=== PATIENT | male | born 1965 | race Caucasian/White ===

== ENCOUNTER 2016-04-01 05:32 | Inpatient (IN) | payer OTHER ==
[2016-03-17 12:47] VITALS: BMI 38.0
--- NOTE | 2016-03-17 13:13 | PAT Medication Instructions ---
Service Date Mar 17, 2016. Current Home Medication List Acetaminophen (Tylenol), 1,000 MG PO PRN Ascorbic Acid (Vitamin C), 500 MG PO QAM Aspirin (Aspirin Chewable), 81 MG PO QAM Atorvastatin (Lipitor), 40 MG PO QPM Carvedilol (Coreg), 3.125 MG PO BID Hydrochlorothiazide (Hctz), 25 MG PO QAM Loratadine (Claritin), 10 MG PO QAM Losartan Potassium (Cozaar), 25 MG PO QPM Tramadol (Ultram), 50 MG PO PRN Medication Instructions For Your Scheduled Surgery - Hold the following medications the morning of surgery: Hydrochlorothiazide (Hctz), 25 MG PO QAM Loratadine (Claritin), 10 MG PO QAM Ascorbic Acid (Vitamin C), 500 MG PO QAM - Take the following medications the morning of surgery with a sip of water OTHERWISE NOTHING TO EAT OR DRINK AFTER MIDNIGHT: Carvedilol (Coreg), 3.125 MG PO BID Aspirin (Aspirin Chewable), 81 MG PO QAM Acetaminophen (Tylenol), 1,000 MG PO PRN (may take up to 4 hours prior to surgery if needed) Tramadol (Ultram), 50 MG PO PRN (may take up to 4 hours prior to surgery if needed) - Take the following medications as scheduled the night before surgery: Atorvastatin (Lipitor), 40 MG PO QPM Carvedilol (Coreg), 3.125 MG PO BID Acetaminophen (Tylenol), 1,000 MG PO PRN Tramadol (Ultram), 50 MG PO PRN - Do Not take the following medications the night before surgery: Losartan Potassium (Cozaar), 25 MG PO QPM If you have any questions please call us at [phone] or [phone] or [phone]
[2016-03-17 13:44] LABS: BASO % 0.2 %; BASO ABS # 0.02 K/uL (0-0.2); COMPLETE YES; EOS % 0.8 %; HEMATOCRIT 42.5 % (42-52); IG% 0.2 %; LYMPH % 29.4 %; LYMPH ABS # 2.47 K/uL (1.2-3.4); MEAN CELL VOLUME 85.9 fL (80-100); MEAN CORPUSCULAR HEMOGLOBIN 30.3 pg (25-34); MEAN CORPUSCULAR HGB CONC 35.3 g/dl (32-36); MEAN PLATELET VOLUME 9.6 fL (7.4-10.4); MONO % 12.5 %; NEUT % 56.9 %; PLATELET COUNT 230 K/uL (130-400); RED BLOOD COUNT 4.95 M/uL (4.7-6.1)
[2016-03-17 13:44] LABS: URINE APPEARANCE CLEAR (CLEAR); URINE BILIRUBIN NEG (NEG); URINE COLOR YELLOW; URINE NITRITE NEG (NEG); URINE SPECIFIC GRAVITY 1.017 (1.000-1.030); UROBILINOGEN NEG (NEG)
[2016-03-17 13:57] LABS: MANUAL MICROSCOPIC REQUIRED? NO; REVIEW REQ? NO
[2016-03-17 14:01] LABS: PROTHROMBIN TIME (PATIENT) 10.7 SECONDS (9.0-12.0)
--- NOTE | 2016-03-17 14:02 | DIAGNOSTIC IMAGING REPORT ---
CHEST 2 VIEWS ROUTINE CLINICAL HISTORY: PAT preoperative evaluation COMPARISON STUDY: No previous studies for comparison. FINDINGS: The bones soft tissues and hemidiaphragms are normal. The cardiomediastinal silhouette is normal. The lungs are clear. The pulmonary vasculature is normal. IMPRESSION: Negative chest. Electronically signed by: Tapan Radford M.D. 03/17/2016 2:01 PM Dictated Date/Time: 03/17/2016 2:00 PM
[2016-03-17 14:13] LABS: BUN/CREATININE RATIO 12.1 (10-20); CALCIUM 9.1 mg/dl (8.5-10.1); CREATININE 1.2 mg/dl (0.60-1.40); POTASSIUM 3.3 mmol/L (3.5-5.1)
--- NOTE | 2016-03-31 11:23 | HISTORY & PHYSICAL EXAMINATION ---
DATE OF ADMISSION: 04/01/2016 CHIEF COMPLAINT: He presents with back pain, left lower extremity difficulty, paresthesias in the 3-4 nerve root distribution. HISTORY OF PRESENT ILLNESS: Mr. Anderson is a delightful gentleman. He a lumbar spinal stenosis and fusion surgery done a few years ago in [place]. He had a PLIF procedure at L5-S1. He had symptomatic left lower extremity difficulty for significant time period now. Not associated with any fever, sweats, chills or bowel or bladder concerns. He has documented stenosis of the spine at L3-4. Some residual at L4-5 lumbar area. The L5-S1 level in our opinion is benign. PAST MEDICAL HISTORY: Positive for heart disease, positive for hyperlipidemia and hypertension. SURGICAL MEDICAL HISTORY: He had an L4 and 5 fusion in 2013. ALLERGIES: No allergies to medications. CURRENT MEDICATIONS: List includes Lipitor, Coreg, Cozaar, hydrochlorothiazide, baby aspirin, Claritin and tramadol. FAMILY MEDICAL HISTORY: Positive for heart disease, stroke. Negative for diabetes, blood clots, DVTs and cancer. SOCIAL HISTORY: He is . Rarely drinks alcohol. No tobacco use. Active lifestyle. REVIEW OF SYSTEMS: CARDIOVASCULAR: Positive for heart problems. NEUROLOGICAL: Positive for numbness and tingling. PHYSICAL EXAMINATION: CONSTITUTION: He presents to the office with no acute distress. He is 50 years of age, he is 5 foot 5, 220 pounds. CARDIOVASCULAR: Brisk capillary refill in distal extremities. RESPIRATORY: Equal and bilateral breath sounds. INTEGUMENTARY: No breakages of the skin. Integumentary is intact. GASTROINTESTINAL: Abdomen is soft, nontender. No organomegaly with percussion or palpation. RESPIRATORY: Equal and bilateral breath sounds with auscultation. No rales, rhonchi or wheezing. MUSCULOSKELETAL EXAMINATION: No obvious varicosities of the lower extremities. He does have 5/5 motor strength in his right and left lower extremities. He is neurologically intact. No upper motor neuron issues or lower motor neuron pathology. No pain with straight leg raises bilaterally. DIAGNOSTICS: Images from an outside facility were looked at and evaluated. He has some stenosis at the L3-4 level. Nothing at L2-3. Nothing at L1 and L2. He does have a prior fusion at L4-5. There is still some foraminal stenosis at L4-5. ASSESSMENT DIAGNOSES: Lumbar spinal stenosis at L3-4. Some residual stenosis at 4-5 as well. No gross instability, no spondylolisthesis, no scoliosis. PLAN: At this time, we are going to provided him surgery, laminectomy, decompression and instrumentation of the lumbar spine. Will provide him with a decompression at L3-4, as well as decompression L5-1. We may continue instrumentation from the L4-5 segments up to L3-4 as well. We describe the procedure with him. All the risks and benefits involved. He does fully understand. We did provide him with a back brace postop. Also provided him with pain medications postop as well. We will follow him up in the office 10-14 days postop. Reevaluate and suture removal. Anticipate him being at [facility] for 1, possibly 2 days, before discharge.
[~2016-04-01] VITALS: Ht 167.6 cm; Wt 106.1 kg
[2016-04-01] VITALS (9 sets, daily range): BP systolic 117–163; BP diastolic 71–97; PULSE 77–111; TEMP 36.3–36.8; O2SAT 92–99; Ht 167.6 cm; Wt 106.1 kg
[~2016-04-01 05:32] MED LIST: ACET-1256 PO; ASCO1CAP3 PO; ASPCH81X PO; ATOR-24 PO; CARV3.122 PO; CLR10 PO; HYDR25TA4 PO; LOSA1TAB PO; TRAM-10 PO
[2016-04-01] MEDS ORDERED: CEFAZOLIN 2000 MG/60 ML D5W 60 ML IV SCH (06:00)
[2016-04-01] MEDS ORDERED: LACTATED RINGER'S 1000ML IV SCH (06:00)
[2016-04-01] MEDS ORDERED: NSS 1000ML IV SCH (06:00)
[2016-04-01] MEDS ORDERED: LIDOCAINE HCL 2% 2 ML VIAL (20MG/ML) ONE (06:47)
[2016-04-01] MEDS ORDERED: DEXAMETHASONE SOD INJ 4 MG/ML VIAL ONE (06:47)
[2016-04-01] MEDS ORDERED: GLYCOPYRROLATE INJ 0.2 MG/ML VIAL ONE (06:47)
[2016-04-01] MEDS ORDERED: NEOSTIGMINE METHYLSULFATE 5 MG/5 ML SYR ONE (06:47)
[2016-04-01] MEDS ORDERED: ROCURONIUM BROMIDE 10 MG/ML 5 ML VIAL ONE (06:47)
[2016-04-01] MEDS ORDERED: PROPOFOL IV EMULSION 10 MG/ML 20 ML VIAL IV ONE (06:47)
[2016-04-01] MEDS ORDERED: ONDANSETRON INJ 2 MG/ML 2 ML VIAL ONE (06:47)
[2016-04-01] MEDS ORDERED: MIDAZOLAM HCL 1 MG/ML 2ML VIAL ONE (06:48)
[2016-04-01] MEDS ORDERED: HYDROmorphone INJ 2 MG/ML SYR/VIAL ONE (06:48)
[2016-04-01] MEDS ORDERED: FENTANYL CITRATE INJ 50 MCG/1 ML 2 ML VIAL ONE ×2 (06:48)
[2016-04-01] MEDS ORDERED: GELATIN SPONGE SZ 100 ONE (06:55)
[2016-04-01] MEDS ORDERED: THROMBIN FOR SOLN 20000 UNIT KIT ONE ×2 (06:55→07:01)
[2016-04-01] MEDS ORDERED: BACITRACIN 50000 UNIT VIAL ONE (06:56)
[2016-04-01] MEDS ORDERED: VANCOMYCIN HCL 1000MG/20ML VIAL ONE (06:56)
[2016-04-01] MEDS ORDERED: BUPIVACAINE/EPINEPHRINE 0.5% MPF 1:200,000 30 ML VIAL ONE (06:56)
[2016-04-01] MEDS ORDERED: EpHEDrine SULFATE INJ 50 MG/ML AMP IV PRN (07:00)
[2016-04-01] MEDS ORDERED: FENTANYL CITRATE INJ 50 MCG/1 ML 2 ML VIAL IV PRN (07:00)
[2016-04-01] MEDS ORDERED: ONDANSETRON INJ 2 MG/ML 2 ML VIAL IV PRN ×2 (07:00→11:00)
[2016-04-01] MEDS ORDERED: ATROPINE SULFATE 0.1 MG/ML 5ML SYR IV PRN (07:00)
[2016-04-01] MEDS ORDERED: HYDROmorphone INJ 1 MG/ML SYR IV PRN (07:00)
--- NOTE | 2016-04-01 07:19 | History & Physical Bridge Note ---
H&P Re-Evaluation Bridge Note: I have examined the patient, reviewed the History & Physical and in the interval since the performance of the History & Physical I have noted the following changes of clinical significance: No changes noted
[2016-04-01] MEDS ORDERED: EpHEDrine SULFATE 50MG/5ML SYR ONE (08:44)
--- NOTE | 2016-04-01 10:11 | DIAGNOSTIC IMAGING REPORT ---
INTRAOPERATIVE RADIOGRAPH CLINICAL HISTORY: L3-L5 laminectomy. Fluoroscopy time: 4 seconds. FINDINGS: A single spot fluoroscopic view of the lumbar spine is presented. There is evidence of discectomy at L4-L5 with laminectomy and posterior fusion from L3 to L5. Interpedicular screws are present at all levels. The hardware appears intact. IMPRESSION: Intraoperative image from L3 -L5 spinal fusion as above. Electronically signed by: Lobito Pyle M.D. 04/01/2016 10:10 AM Dictated Date/Time: 04/01/2016 10:09 AM
[2016-04-01] MEDS ORDERED: DURASEAL DURAL SEALANT 5ML TOP ONE (10:19)
[2016-04-01] MEDS ORDERED: SODIUM CHLORIDE 0.9% 1000ML 1,000 ML IV SCH (10:49)
--- NOTE | 2016-04-01 10:51 | [facility] Post Operative Brief Note ---
Immediate Operative Summary Operative Date Apr 01, 2016. Pre-Operative Diagnosis Lumbar spinal stenosis L3-4, some residual stenosis at L4-5 Post-Operative Diagnosis Same as pre-operative diagnosis Procedure(s) Performed L3-L4, L4-L5 Laminectomy; L4-L5 Removal Implants; L3-L4, L4-L5 Insertion of Implants and Fusion, Prophylactic Use of Duraseal Surgeon Dr. Chapin Soto Language Path Surgeon(s) Nam Lind PA-C Estimated Blood Loss 300ml Findings severe stenosis L3-5 Specimens A: Explanted hardware lumbar spine L4-5 Complication(s) None Disposition Recovery Room / PACU
[2016-04-01] MEDS ORDERED: HYDROmorphone HCL 0.5MG/ML 50 ML CASSETTE ONE (10:59)
[2016-04-01] MEDS ORDERED: LORAZEPAM INJ 1 MG in SYRINGE 0 ML IV PRN (11:00)
[2016-04-01] MEDS ORDERED: ACETAMINOPHEN 500 MG TAB PO SCH (11:00)
[2016-04-01] MEDS ORDERED: ACETAMINOPHEN 325 MG TAB PO PRN (11:00)
[2016-04-01] MEDS ORDERED: MAGNESIUM HYDROXIDE SUSP 30 ML UDC PO PRN (11:00)
[2016-04-01] MEDS ORDERED: PROMETHAZINE HCL INJ 12.5 MG in SODIUM CHLORIDE 0.9% 50ML 50 ML IV PRN (11:00)
[2016-04-01] MEDS ORDERED: METOCLOPRAMIDE HCL INJ 5 MG/ML 2 ML VIAL IV PRN (11:00)
[2016-04-01] MEDS ORDERED: NALOXONE HCL 0.4 MG/1 ML VIAL/CARP IV PRN (11:00)
[2016-04-01] MEDS ORDERED: LORAZEPAM 1 MG TAB PO PRN (11:00)
[2016-04-01] MEDS ORDERED: PROMETHAZINE HCL INJ 12.5 MG in SODIUM CHLORIDE 0.9% 50ML 50 ML IV ONE (11:45)
--- NOTE | 2016-04-01 12:08 | OPERATIVE REPORT ---
DATE OF OPERATION: 04/01/2016 PREOPERATIVE DIAGNOSIS: Spinal instability 3-4 lumbar spine, severe stenosis lumbar spine L3-4, L4-5. Retained implants L4-5. POSTOPERATIVE DIAGNOSIS: Same. PROCEDURE: 1. Laminectomy L3, L4, L5. Four level laminectomy, foraminotomy, and partial facetectomies. 2. Removal of prior implants at L4 and 5. 3. Pedicle screw insertion, single segment fusion L3-4 with new pedicle screws placed in L3, retained pedicle screws reused at L4 and L5. SURGEON: Dr. Soto. RELIEF OPERATOR: Nam Lind PA-C. COMPLICATIONS: Zero. BLOOD LOSS: 300. The patient was taken to the operating room and a general intubated anesthetic provided to the patient, placed prone, prepped, draped sterile. He was first shaved, he was first scrubbed. Antibiotics given. Wang catheter administered as well. We made a skin incision, essentially his old skin incision from 3 to the sacrum, dissecting the soft tissue. We came right out over the pedicle screws at 4-5 bilaterally, putting a deep self-retaining retractor. I also exposed up to the L3 vertebral level. We then did a formal decompression of laminectomy at 3, 4, and 5 of the lumbar spine. It was essentially a virgin decompression, meaning it did not appear to me that it had been decompressed in the past. We carefully and meticulously got pressure of the dura and the associated nerve roots, L3-L4, L4-L5, and even the S1 nerve roots were decompressed. I was pleased with the decompression aspect. I felt there was a little instability as I had taken out a lot of the facet joints at 3 and 4, so we did instrument the spine. We first took out the francesco between 4 and 5. Anticipating taking out the screws as well. I have made the decision at the surgical site that the screws were satisfactory, that the heads where appropriate, that we could maintain the screws and save him probably 30-45 minutes of operative time. We then carefully get pedicle screws safely in at L3. We put a longitudinal francesco from 3, 4, and 5. Used the old caps and the new caps, kind of a revision technique, and fixated his spine. Then we bone grafted out over the transverse processes to initiate the fusion. We irrigated thoroughly, probably used about 1000 mL of fluid before bone grafting. Put some DuraSeal over the dura, Gelfoam over the dura and vancomycin powder sprinkled. Hemovac drain provided. Closed fascia to fascia with 1 Vicryl suture, 2-0 in the subcuticular layer, 3-0 nylon on the skin, sterile dressing applied. The patient returned to PACU stable. No apparent complications. I attest to the content of the Intraoperative Record and any orders documented therein. Any exceptio ns are noted below.
[2016-04-01] MEDS ORDERED: LABETALOL HCL IV 5 MG/ML 20ML ONE (12:12)
--- NOTE | 2016-04-01 12:51 | Anesthesiology Progress Note ---
Anesthesia Post Op Note Date & Time Apr 01, 2016 at 12:51 Vital Signs Pain Intensity: 0 Vital Signs Past 12 Hours Date Time Temp Pulse Resp B/P Pulse Ox O2 Delivery O2 Flow Rate FiO2 04/01/16 12:03 158/88 04/01/16 12:01 158/97 04/01/16 12:00 97 12 95 04/01/16 12:00 96 12 04/01/16 11:58 194/95 04/01/16 11:55 96 19 97 04/01/16 11:55 93 19 04/01/16 11:53 176/87 04/01/16 11:50 91 18 04/01/16 11:50 91 18 96 04/01/16 11:49 82 16 04/01/16 11:49 82 16 98 04/01/16 11:48 176/84 04/01/16 11:44 92 17 04/01/16 11:44 93 17 173/77 97 04/01/16 11:42 188/120 04/01/16 11:39 77 17 04/01/16 11:39 75 17 98 04/01/16 11:38 174/101 04/01/16 11:35 152/119 04/01/16 11:34 102 19 04/01/16 11:34 102 19 100 04/01/16 11:33 166/98 04/01/16 11:29 83 17 97 04/01/16 11:29 82 17 04/01/16 11:28 158/89 04/01/16 11:24 95 16 04/01/16 11:24 95 16 97 04/01/16 11:23 187/96 04/01/16 11:19 76 16 04/01/16 11:19 75 16 98 04/01/16 11:18 156/84 04/01/16 11:14 80 9 98 04/01/16 11:14 80 9 04/01/16 11:13 75 23 04/01/16 11:13 73 23 165/89 95 04/01/16 11:13 75 23 04/01/17 11:13 73 23 165/89 95 04/01/16 11:08 93 10 151/81 98 04/01/16 11:08 93 10 04/01/16 11:08 93 10 151/81 98 04/01/16 11:08 93 10 04/01/16 11:06 36.3 82 19 150/85 98 Mask 10 04/01/16 11:03 80 19 04/01/16 11:03 80 19 04/01/16 11:03 80 19 176/108 98 04/01/16 11:03 80 19 176/108 98 04/01/16 10:58 85 15 04/01/16 10:58 85 15 175/105 98 04/01/16 10:58 85 15 175/105 98 04/01/16 10:58 85 15 04/01/16 05:55 36.4 86 18 163/97 96 Room Air Notes Mental Status: alert / awake / arousable, participated in evaluation Pt Amnestic to Procedure: Yes Nausea / Vomiting: adequately controlled Pain: adequately controlled Airway Patency, RR, SpO2: stable & adequate BP & HR: stable & adequate Hydration State: stable & adequate Anesthetic Complications: no major complications apparent
[2016-04-01] MEDS: HYDROmorphone HCL 0.5MG/ML 50 ML CASSETTE IV PRN ×3 (13:13→23:16)
[2016-04-01] MEDS: SODIUM CHLORIDE 0.9% 1000ML 1,000 ML IV SCH (14:41)
[2016-04-01] MEDS: DEXAMETHASONE INJ 10 MG in SYRINGE 0 ML IV SCH (18:03)
[2016-04-01] MEDS: CEFAZOLIN IV 2,000 MG in DEXTROSE 5% 50ML 50 ML IV SCH (18:03)
[2016-04-01] MEDS: KETOROLAC TROMETHAMINE 30 MG/ML VIAL IV SCH (18:04)
[2016-04-01] MEDS: ATORVASTATIN 40 MG TAB PO SCH (21:52)
[2016-04-01] MEDS: CARVEDILOL 3.125 MG TAB PO SCH (21:53)
[2016-04-01] MEDS: LOSARTAN POTASSIUM 25 MG TAB PO SCH (21:54)
[2016-04-02] VITALS (8 sets, daily range): BP systolic 116–156; BP diastolic 68–80; PULSE 84–102; TEMP 36.5–36.8; O2SAT 94–97
[2016-04-02] MEDS: SODIUM CHLORIDE 0.9% 1000ML 1,000 ML IV SCH (00:01)
[2016-04-02] MEDS: CEFAZOLIN IV 2,000 MG in DEXTROSE 5% 50ML 50 ML IV SCH ×2 (00:02→07:25)
[2016-04-02] MEDS: DEXAMETHASONE INJ 10 MG in SYRINGE 0 ML IV SCH ×4 (00:04→23:49)
[2016-04-02] MEDS: KETOROLAC TROMETHAMINE 30 MG/ML VIAL IV SCH ×4 (00:05→18:15)
[2016-04-02] MEDS ORDERED: DC PCA SCH ×2 (06:00→08:00)
[2016-04-02] MEDS ORDERED: BISACODYL 5 MG TABEC PO PRN (06:00)
[2016-04-02] MEDS ORDERED: BISACODYL 10 MG SUPP PR PRN (06:00)
--- NOTE | 2016-04-02 07:29 | Discharge Instructions ---
Discharge Instructions Admission Reason for Admission: Lumbar Spinal Stenosis Discharge Discharge Diagnosis / Problem: spinal fusion Discharge Goals Goal(s): Improve function Activity Recommendations Activity Limitations: as noted below Lifting Limitations: no more than 5 pounds Exercise/Sports Limitations: until after follow-up appointment May Resume Sexual Activity: after follow-up appointment Shower/Bathe: keep incision dry Driving or Machine Use: . Instructions / Follow-Up Instructions / Follow-Up MEDICATIONS: Please take your prescriptions as instructed at your pre-op appointment. SPECIAL CARE: The following information is intended to answer some of the common questions and concerns regarding your surgery. Each patient is an individual and receives individual counselling throughout the course of treatment, from diagnosis to surgery all the way through recovery. What follows is not an exhaustive list, but should be a useful guide to some of the common questions and concerns patients have regarding their surgeries. These are not provided to keep you from calling us; rather, they give you something accurate and concrete to reference as you recover from your procedure. If you need us, we are available to you. As always, if you are not sure about something, call us at [phone]. MEDICAL EMERGENCIES: For these conditions, call 911 or go to your local hospital-based Emergency Department - not [facility] or equivalent. * Paralysis * Severe chest pain or difficulty breathing * Swelling or redness of either leg Spine procedures can be rather complex and though complications are rare, they do occur. In such cases, effective advice regarding emergency situations cannot always be addressed over the telephone. You may be referred to the emergency department for more effective management of your problem. Activity Limitations: It is important to give your body time to heal, so please limit your activities : * In general, don't do anything that moves your spine too much. You should avoid contact sports, twisting or heavy lifting while you recover. * 5-10 pounds is all you should attempt to lift. * You should not plan on driving for approximately 3 weeks and you should avoid traveling more than 30-45 minutes at a time. Longer trips should be broken down with walking breaks spaced appropriately. * Physical therapy is not usually required. * Walking and good posture practices will help you recover and regain your function. * Avoid straining or sudden changes in position. * In general, the goal is to take it easy and recover. Don't cause any new problems. Just relax. Showers: * Do not take a bath, use a Jacuzzi or hot tub or otherwise submerge your incision. * It is usually safe to take a shower 4-5 days after your surgery. * Your incision does not require any special creams or ointments. * Simply clean it with soap and water, dry and re-dress with a clean bandage afterwards. Incision: * Keep incision clean, dry and protected until your first follow-up appointment. * Some amount of drainage and redness is normal. Any drainage should be fairly clear and not have a foul odor. * If you feel anything is wrong or you have excessive drainage, please call us. * Your stitches and tricia will be removed 10-14 days after your surgery. At the time of your first post-op visit. * Neck surgeries are typically closed with a suture underneath the skin. The steri-strips over the incision should be maintained until we see you in the office. Bracing: * You may be provided with a back or neck brace to encourage good posture and prevent injury. It will remind you not to do too much as you heal and will alert others to the fact that you have had a surgery. * Back braces may be removed for showers and when you are resting at home. They must be worn when you are walking around for any period of time or for travel. * For neck surgery, you will likely be provided with two cervical collars. The soft collar ([place] or foam rubber) is worn most commonly throughout the day and while sleeping. The plastic collar (provided at the hospital) is for showering/bathing. * Except while eating, collars should remain in place. More specifically, bracing is provided for a purpose and should be worn. * Please obtain your brace or collars prior to your operation and bring them to the hospital with you on the day of surgery. * You should also bring your collars to your post-op appointment with Dr. Soto. You should always take good care of your body and practice healthy habits, especially following surgery. You should: * Follow your doctor's treatment plan * Sit and stand properly with good posture (ears over shoulders, shoulders over hips) Don't slouch * Learn to lift correctly * Exercise regularly (low-impact aerobic exercise is especially good, but check with your doctor first) * Generally, be up and walking for 5-10 minutes at a time at least 3-4 times per day from the day you get home * Increasing walking to tolerance until you can walk for 20-30 minutes at a time * Attain and maintain a healthy body weight * Eat healthy foods ( a well-balanced, low-fat diet rich in fruits and vegetables) and get enough calcium * Avoid excessive use of alcohol When to call our office - If you notice any of the following: * Increased pain not relieve by pain medicine * Fevers greater then 100 degrees F, chills or flu symptoms * Increased redness around incision * Drainage from the incision that is not clear * Any foul smelling drainage * Swelling or fluid collection beneath the skin Miscellaneous: * In the hospital, you may be given a walker or cane for support while walking. These are temporary needs and are intended to prevent injuries due to falls. You may discontinue them when you feel strong and steady enough on your feet. * Sleep in a comfortable position. We find that many patients find a lounge chair or recliner with several pillows to be beneficial in the early post-operative period. * The support stockings should be used for 7-10 days and may be discontinued when you are back to walking more and conducting usual household activities. No problem is insignificant. We are here to help you and get you well. Contact us at [phone]. Definitions: Foraminotomy: If part of the disc or a bone spur (osteophyte) is pressing on a nerve as it leaves the vertebra (through an exit called the foramen), a foraminotomy may be done. Otomy means "to make an opening." A foraminotomy is making the opening of the foramen larger, so the nerve can exit without being compressed. Laminotomy: Similar to the foraminotomy, a laminotomy makes a larger opening, this time in your bony plate protecting your spinal canal and spinal cord (the lamina). The lamina may be pressing on your nerve, so the surgeon may make more room for the nerves using a laminotomy. Laminectomy: Sometimes, a laminotomy is not sufficient. The surgeon may need to remove all or part of the lamina. This procedure is called a laminectomy. This can often be done at many levels without any harmful effects. Current Hospital Diet Patient's current hospital diet: Regular Diet Discharge Diet Recommended Diet: Regular Diet Procedures Procedures Performed: L3-L4, L4-L5 Laminectomy; L4-L5 Removal Implants; L3-L4, L4-L5 Insertion of Implants and Fusion, Prophylactic Use of Duraseal Pending Studies Studies pending at discharge: no Medical Emergencies . Who to Call and When: Medical Emergencies: If at any time you feel your situation is an emergency, please call 911 immediately. . Non-Emergent Contact Non-Emergency issues call your: Surgeon Call Non-Emergent contact if: your pain is worsening, you have any medication questions . "Provider Documentation" section prepared by Chapin Soto. VTE Core Measure Inpt VTE Proph given/why not?: Treatment not indicated
--- NOTE | 2016-04-02 07:34 | PROGRESS NOTE ---
DATE: 04/02/2016 DATE: 04/02/2016. SUBJECTIVE: Minimal complaints of pain. Alert, oriented. No riveting lower extremity difficulty. No fevers, sweats or chills. OBJECTIVE: Vital signs stable. Lab work not indicated. ASSESSMENT: Status post lumbar spine laminectomy and fusion, doing well short run. DISPOSITION: Includes instructions, precautions, education, up and ambulatory today 30-40 feet. Tentative discharge home tomorrow.
[2016-04-02] MEDS ORDERED: HYDROmorphone INJ 1 MG/ML SYR IV PRN ×2 (08:00)
[2016-04-02] MEDS ORDERED: OXYCODONE/ACETAMINOPHEN 5-325 TAB PO PRN (08:00)
--- NOTE | 2016-04-02 08:28 | Anesthesiology Progress Note ---
Anesthesia Post Op Note Date & Time Apr 02, 2016 at 08:27 Vital Signs Pain Intensity: 3.0 Vital Signs Past 12 Hours Date Time Temp Pulse Resp B/P Pulse Ox O2 Delivery O2 Flow Rate FiO2 04/02/16 03:46 36.7 99 16 122/72 97 Room Air 04/02/16 00:00 Nasal Cannula 2.0 04/01/16 23:46 36.4 111 18 120/71 96 Nasal Cannula 2.0 04/01/16 21:57 95 123/75 97 2.0 Notes Mental Status: alert / awake / arousable, participated in evaluation Pt Amnestic to Procedure: Yes Nausea / Vomiting: adequately controlled Pain: adequately controlled Airway Patency, RR, SpO2: stable & adequate BP & HR: stable & adequate Hydration State: stable & adequate Anesthetic Complications: no major complications apparent
[2016-04-02] MEDS: ASPIRIN 81 MG ECTAB PO SCH (09:01)
[2016-04-02] MEDS: LORATADINE 10 MG TAB PO SCH (09:01)
[2016-04-02] MEDS: HYDROCHLOROTHIAZIDE 25 MG TAB PO SCH (09:02)
[2016-04-02] MEDS: ASCORBIC ACID 500 MG TAB PO SCH (09:02)
[2016-04-02] MEDS: POLYETHYLENE (MIRALAX) 17 GM PACK PO SCH (09:03)
[2016-04-02] MEDS: CARVEDILOL 3.125 MG TAB PO SCH ×2 (09:03→20:53)
[2016-04-02] MEDS ORDERED: NURSING VERBAL MED ORDER ONE (10:45)
[2016-04-02] MEDS: OXYCODONE/ACETAMINOPHEN 5-325 TAB PO PRN (14:00)
[2016-04-02] MEDS: ATORVASTATIN 40 MG TAB PO SCH (21:38)
[2016-04-02] MEDS: LOSARTAN POTASSIUM 25 MG TAB PO SCH (21:39)
[2016-04-03] MEDS: OXYCODONE/ACETAMINOPHEN 5-325 TAB PO PRN ×2 (04:34→12:21)
[2016-04-03 06:41] VITALS: PULSE 89; TEMP 36.5; O2SAT 95
[2016-04-03 06:46] VITALS: BP 143/76
[2016-04-03] MEDS: POLYETHYLENE (MIRALAX) 17 GM PACK PO SCH (07:32)
[2016-04-03 07:33] VITALS: BP 148/85; PULSE 89; TEMP 36.6; O2SAT 95
[2016-04-03] MEDS: CARVEDILOL 3.125 MG TAB PO SCH (08:10)
[2016-04-03] MEDS: LORATADINE 10 MG TAB PO SCH (08:10)
[2016-04-03] MEDS: HYDROCHLOROTHIAZIDE 25 MG TAB PO SCH (08:10)
[2016-04-03] MEDS: ASPIRIN 81 MG ECTAB PO SCH (08:10)
[2016-04-03] MEDS: ASCORBIC ACID 500 MG TAB PO SCH (08:10)
[2016-04-03] MEDS ORDERED: HYDR-4383 PO (09:48)
--- NOTE | 2016-04-03 09:53 | DISCHARGE SUMMARY ---
DATE OF DISCHARGE: 04/03/2016. SUBJECTIVE: Minimal complaints of pain. Alert, oriented, improved leg function. OBJECTIVE: Lungs clear. Neurologically intact. Wound clean, afebrile. ASSESSMENT: Status post lumbar spine fusion improved short run. DISPOSITION: Includes instructions, precautions, education. Discharged home today. Follow up in 10 days. He has a back brace. He has prescriptions. He is set for discharge. Instructions, precautions have been gone over with him several times.
[2016-04-03 10:08] VITALS: BP 148/85; PULSE 89; TEMP 36.6; O2SAT 95
== END 2016-04-03 13:23 | disposition home or self-care (01) | DRG 460 ==
LOC: ENRESERVDT → ENRESERVTM → C.ACU 05:32 → C.3E 07:00
PROVIDERS: ADMIT Orthopaedic Surgery Orthopaedic Surgery of the Spine; ATTEND Orthopaedic Surgery Orthopaedic Surgery of the Spine
PROC: 0QB00ZZ Excision of Lumbar Vertebra, Open Approach (ICD-10-PCS; principal; 2016-04-01 07:30)
PROC: 0SP004Z Removal of Internal Fixation Device from Lumbar Vertebral Joint, Open Approach (ICD-10-PCS; principal; 2016-04-01 07:30)
PROC: 0SG10K0 Fusion of 2 or more Lumbar Vertebral Joints with Nonautologous Tissue Substitute, Anterior Approach, Anterior Column, Open Approach (ICD-10-PCS; principal; 2016-04-01 07:30)
DX: M99.73 Connective tissue and disc stenosis of intervertebral foramina of lumbar region (principal); M53.2X6 Spinal instabilities, lumbar region; M48.06 Spinal stenosis, lumbar region; R20.2 Paresthesia of skin; I10 Essential (primary) hypertension; E78.5 Hyperlipidemia, unspecified; Z79.82 Long term (current) use of aspirin; Z79.899 Other long term (current) drug therapy; Z82.3 Family history of stroke; Z82.49 Family history of ischemic heart disease and other diseases of the circulatory system; Z98.1 Arthrodesis status